=== PATIENT | female | born 1990 | race Caucasian/White ===

== ENCOUNTER 2022-12-13 04:28 | Emergency (ER) | payer SELFPAY ==
--- OUTSIDE RECORDS SUMMARY | 2022-12-13 04:32 | XMS REPORT | Continuity of Care Document ---
:[address] [facility] t Address [address] [place] [address] Care Team Providers Name Role Phone CAMLILA BABB Primary Care Physician Unavailable Alia Camarillo MD Attending Clinician ALIA CAMARILLO Attending Clinician Unavailable Unknown, Attending Attending Clinician Unavailable Doctor Unassigned, [place] Attending Clinician Unavailable CONCHA GREGORY Attending Clinician Unavailable Bri Concha REEDER Attending Clinician [phone] Nelsy Sofia Attending Clinician Unavailable JOSE JUAN SUTTON Attending Clinician Unavailable Jose Juan Rizo Attending Clinician Ashanti Huggins Attending Clinician Physician, No Primary or Family Admitting Clinician Unavaila ble Payers Payer Name Policy Type Policy Number Effective Date Expiration Date S ource Problems Condition Condition Condition Status Onset Resolution Last Treating Co mments Source Name Details Category Date Date Treatment Clinician Date Other Other Disease Active [facility] general general 4-07 [place] advice 00 Me dical for for Branch contracept contracept nereyda nereyda management management Breast Breast Disease Active Univers pain, pain, 4-07 ity of right right 00:00: [place] 00 Medical Branch 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 U nivers ou smear ou smear 2-23 it[place] of of cervix of [place] 00 Medical atypical atypical Branch squamous squamous cells cells cannot cannot exclude exclude high grade high grade squamous squamous intraepith intraepith elial elial lesion lesion (ASC-H) (ASC-H) Slow Slow Disease Active 2014-11 Univers transit transit 2-10 ity of constipati constipati [place] Family Family Disease Active 2014-11 Univers history of history of 2-10 it y of breast breast 00:00: [place] cancer in cancer in 00 Medi dilma first first Branch degree degree relative relative Papanicola Papanicola Disease Active Overview : Univers ou smear ou smear 4-29 [place] ity of of cervix of cervix 00:00: [place] of this [place] with low with low 00 note is Medic al grade grade different Branch squamous squamous from the intraepith intraepith original. 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 Allergies, Adverse Reactions, Alerts Allergy Allergy Status Severity Reaction(s) Onset Inactive Treating Comm ents Source Name Type Date Date Clinician No Known DA Active [facility] Allergie 05-08 Clear s 00:00: [place] 00 [facility] No Known DA Active U [facility] Allergie 05 Clear s 00:00: Bern[place] 00 [facility] No Known DA Active U [facility] Drug 2-17 [place] Allergie 00:00: d s 00 [facility] No Known DA Active U [facility] Drug 2-17 [place] Allergie 00:00: d s 00 [facility] NO KNOWN Drug Active Univers ALLERGIE Class ity of S [facility] Social History Social Habit Start Date Stop Date Quantity Comments Source History of Cigarette Smoker Universi ty of tobacco use [facility] Exposure to 2022-08-08 2022-08-18 Not sure [facility] SARS-CoV-2 00:00:00 20:30:00 [facility] [place] Tobacco use and 2022-08-18 2022-08-18 Smokeless tobacco Un iversity of exposure 00:00:00 00:00:00 non-user [facility] Alcohol intake 2022-08-18 2022-08-18 0 /d [facility] 00:00:00 00:00:00 [facility] Sex Ass[birth year] At [birth year] Universit y of 00:00:00 00:00:00 [facility] Smoking Status Start Date Stop Date Source Ex-smoker 2022-08-18 00:00:00 2022-08-18 00:00:00 [facility] Medications Ordered Filled Start Stop Current Ordering Indication Dosage Frequency Signature Comments Components Source Medication Medication Date Date Medication? Clinician (SIG) Name Name clindamycin 2021-11 Yes [id number] 300mg Take 1 Univers 300 mg 0-16 capsule by ity of capsule 00:00: mouth 4 [place] 00 ([facility]) Medical times [place] daily. Oxycodone 2021-11 Yes Take by Unive rs 10 mg Tab 0-15 mouth. ity of 20:35: [address] Oxycodone 2021-11 Yes Take by Unive rs 10 mg Tab 0-15 mouth. ity of 20:35: [address] Oxycodone 2021-11 Yes Take by Unive rs 10 mg Tab 0-15 mouth. ity of 20:35: [address] clindamycin 2021-11- No [id number] 300mg Take 1 Univers 300 mg 0-15 10-26 capsule by ity of capsule 00:00: 04:59 mouth 4 [place] 00 :00 ([facility]) Medical times [place] daily for 10 days. clindamycin 2021-11- No [id number] 300mg Take 1 Univers 300 mg 0-15 10-26 capsule by ity of capsule 00:00: 04:59 mouth 4 [place] 00 :00 ([facility]) Medical times [place] daily for 10 days. clindamycin 2021-11- No [id number] 300mg Take 1 Univers 300 mg 0-15 10-16 capsule by ity of capsule 00:00: 00:00 mouth 4 [place] 00 :00 (four) Medical times Branch daily for 10 days. valACYclovi 0 Yes Univer s r 1 gram 3-22 ity of tablet 00:00: [place] [facility] rizatriptan 2021-0 Yes Univer s 10 mg 3-22 ity of tablet 00:00: [place] [address] Medical Branch hydrOXYzine 2021-0 Yes Univer s 50 mg 3-22 ity of tablet 00:00: [place] [facility] clotrimazol 2021-0 Yes Univer s e-betametha 3-22 ity of sone cream 00:00: [place] [address] Medical Branch valACYclovi 0 Yes Univer s r 1 gram 3-22 ity of tablet 00:00: [place] [address] Medical Branch rizatriptan 0 Yes Univer s 10 mg 3-22 ity of tablet 00:00: [place] [address] Medical Branch hydrOXYzine 2021-0 Yes Univer s 50 mg 3-22 ity of tablet 00:00: [place] [address] Medical Branch clotrimazol 2021-0 Yes Univer s e-betametha 3-22 ity of sone cream 00:00: [place] [address] Medical Branch valACYclovi 2021-0 Yes Univer s r 1 gram 3-22 ity of tablet 00:00: [place] [address] Medical Branch rizatriptan 2021-0 Yes Univer s 10 mg 3-22 ity of tablet 00:00: [place] [address] Medical Branch hydrOXYzine 2021-0 Yes Univer s 50 mg 3-22 ity of tablet 00:00: [place] [address] Medical Branch clotrimazol 2021-0 Yes Univer s e-betametha 3-22 ity of sone cream 00:00: [place] [address] Medical Branch valACYclovi 2021-0 Yes Univer s r 1 gram 3-22 ity of tablet 00:00: [place] [facility] rizatriptan 2021-0 Yes Univer s 10 mg 3-22 ity of tablet 00:00: [place] [address] Medical Branch hydrOXYzine 2021-0 Yes Univer s 50 mg 3-22 ity of tablet 00:00: [place] [address] Medical Branch clotrimazol 2021-0 Yes Univer s e-betametha 3-22 ity of sone cream 00:00: [address] Branch valACYclovi Yes Univer s r 1 gram 3-22 ity of tablet 00:00: [address] Branch rizatriptan Yes Univer s 10 mg 3-22 ity of tablet 00:00: [address] Branch hydrOXYzine 0 Yes Univer s 50 mg 3-22 ity of tablet 00:00: [address] clotrimazol Yes Univer s e-betametha 3-22 ity of sone cream 00:00: [address] Immunizations Ordered Filled Immunization Date Status Comments Sour e Immunization Name Name HPV9 2015-10-14 Completed University of 00:00:00 [facility] 2015-10-14 Completed University of 00:00:00 [facility] HPV9 2015-10-14 Completed University of 00:00:00 [facility] 2015-10-14 Completed University of 00:00:00 [facility] 2015-10-14 Completed University of 00:00:00 [facility] TDAP 2013-01-27 Completed University of 00:00:00 [facility] TDAP 2013-01-27 Completed University of 00:00:00 [facility] TDAP 2013-01-27 Completed University of 00:00:00 [facility] TDAP 2013-01-27 Completed University of 00:00:00 [facility] TDAP 2013-01-27 Completed University of 00:00:00 [facility] Vital Signs Vital Name Observation Time Observation Value Comments Source Systolic blood 2022-08-19 01:34:00 129 mm[Hg] Univer sity of pressure [facility] Diastolic blood 2022-08-19 01:34:00 87 mm[Hg] Unive rsity of pressure [facility] Heart rate 2022-08-19 01:34:00 97 /min [facility] Body temperature 2022-08-19 01:34:00 37.17 [facility]illiana [facility] Res[facility] rate 2022-08-19 01:34:00 16 /min [facility] Body weight 2022-08-19 01:34:00 73.029 kg [facility] BMI 2022-08-19 01:34:00 25.22 kg/m2 [facility] Oxygen saturation in 2022-08-19 01:34:00 98 /min [facility] Arterial blood by [facility] Pulse oximetry Branch Systolic blood 2022-04-10 18:31:00 136 mm[Hg] Univer sity of pressure [facility] Diastolic blood 2022-04-10 18:31:00 77 mm[Hg] Unive rsity of [facility] Heart rate 2022-04-10 18:31:00 82 /min [facility] Body temperature 2022-04-10 18:31:00 36.22 Lilliana [facility] Respiratory rate 2022-04-10 18:31:00 18 /min [facility] Body height 2022-04-10 18:31:00 170.2 cm [facility] Body weight 2022-04-10 18:31:00 74.418 kg [facility] BMI 2022-04-10 18:31:00 25.70 kg/m2 [facility] Procedures Procedure Date / Time Performed Performing Clinician Sour e PATIENT AGREEMENTS AND 2022-08-18 05:01:00 Doctor Unassigned, No [facility] CONTRACTS Name [facility] POCT URINALYSIS W/O 2022-04-10 18:32:00 Concha Gregory versity of [facility] [place] [facility] GRAVITY [facility] Encounters Start End Encounter Admission Attending Care Care Encounter Source Date/Time Date/Time Type Type Clinicians Facility Department ID 2022-08-19 2022-08-19 Telephone Marquise [facility] [id number] Univers 00:00:00 00:00:00 [facility] [id number] it y [facility] 4.2.7.2.686 Lan as LÓPEZ?BLEA [id number] [address] MEDICAL OFFICE BUILDING 2022-08-18 2022-08-18 Outpatient R MARQUISE [facility] [id number] Univers 20:20:00 20:59:37 ALIA shipman [facility] 2022-08-18 2022-08-18 Urgent Alia Camarillo [facility] [id number] Univers 20:20:00 20:40:00 Care Unknown, Attending HEALTH [id number] ity [facility] 4.2.7.2.686 Lan as LÓPEZ?BLEA [id number] [address] MEDICAL OFFICE BUILDING 2022-08-18 2022-08-18 Orders Doctor DEBRA [id number] Univers 00:00:00 00:00:00 Only Unassigned, JONEL [id number] ity of [place] [facility] 4.2.7.2.686 Lan as [phone] [address] 2022-04-17 2022-04-17 Outpatient R [facility] [id number] Univers 14:30:00 14:30:00 ity [facility] 2022-04-17 2022-04-17 Outpatient R [facility] [id number] Univers 13:00:00 13:00:00 ity [facility] 2022-04-12 2022-04-12 Outpatient R [facility] [id number] Univers 13:00:00 13:00:00 ity [facility] 2022-04-10 2022-04-10 [facility] [id number] Univers 13:15:00 13:59:44 CONCHA benites [facility] 2022-04-10 2022-04-10 Office [facility] [id number] Univers 13:15:00 13:59:44 Visit Concha Mckeon MANAGER ASSET [id number] ity [facility] 4.2.7.2.686 Lan as MATERNAL [phone] [facility] ical & CHILD [address] [place] [address] 2022-04-10 2022-04-10 Outpatient R AKINSIPE, [facility] [id number] Univers 13:15:00 13:15:00 CONCHA shipman o [facility] 2022-02-08 2022-02-08 Office [facility] [id number] Univers 09:30:00 11:18:08 Visit Concha Mckeon MANAGER ASSET [id number] [facility] 4.2.7.2.686 Lan as MATERNAL [id number] Med ical & CHILD [address] [facility] 2022-02-08 2022-02-08 Outpatient Cary GREGORY [facility] [id number] Univers 09:30:00 11:18:08 CONCHA jean baptiste [facility] 2022-02-08 2022-02-08 Outpatient Cary GREGORY [facility] [id number] Univers 09:30:00 09:30:00 CONCHA jean baptiste [facility] 2021-05-09 2021-05-09 Outpatient LORENZO SofiaCL LABO [id number] [facility] 01:17:00 01:17:00 Nelsy 95 [facility] 2021-05-08 2021-05-08 Emergency EM LORENZO SofiaMN ALYSSA [id number] [facility] 16:40:00 18:50:00 Nelsy 20 [facility] 2020-12-13 2020-12-13 Outpatient Cary SUTTON [facility] [id number] Univers 14:00:00 14:00:00 JOSE JUAN benites [facility] 2020-10-13 2020-10-13 Outpatient Cary [facility] [id number] Univers 09:15:00 09:15:00 JOSE JUAN benites [facility] 2020-10-04 2020-10-04 Outpatient Cary [facility] [id number] Univers 13:15:00 13:15:00 JOSÉESTEFANÍASANTOMelinda benites [facility] 2019-06-16 2019-06-16 [place] [facility] [id number] 00:00:00 00:00:00 Jose Juan Townsend MANAGER ASSET [id number] [facility] 4.2.7.2.686 MATERNAL [id number] & CHILD 107 [facility] 2019-06-08 2019-06-09 [facility] [id number] 21:19:19 00:25:00 Ashanti Carrion [place] [id number] [place] 4.2.7.2.686 [place] [id number] Results Test Description Test Time Test Comments Results Result Comments Source POCT URINALYSIS W/O SPECIFIC GRAVITY 2022-04-10 18:32:00 Test Item Value Reference Range Interpretation Comme nts POCT PH U (test code = 3254) 6 mg/dl 5-8 POCT U LEUK EST (test code = 3263) Neg Negative - Negative POCT U NIT (test code = 3262) Neg Negative - Negative POCT U PROT (test code = 3259) Trace Negative - Negative POCT U GLU (test code = 3256) Neg Negative - Negative POCT U KETONE (test code = 3258) None Negative - Negative POCT U BLD (test code = 3257) Trace Negative - Negative [facility]O SPECIFIC [id number] 18:32:00 Test Item Value Reference Range Interpretation Comments POCT PH U (test code = 3254) 6 mg/dl 5-8 POCT U LEUK EST (test code = Neg Negative - Negative 3263) POCT U NIT (test code = 3262) Neg Negative - Negative POCT U PROT (test code = 3259) Trace Negative - Negative POCT U GLU (test code = 3256) Neg Negative - Negative POCT U KETONE (test code = 3258) None Negative - Negative POCT U BLD (test code = 3257) Trace Negative - Negative [facility]ics[facility]PRE[facility] METABOLIC [id number] 18:33:00 Test Item Value Reference Range Interpretation Comments SODIUM (test code = NA) 141 mmol/l 134.0-147.0 N POTASSIUM (test code = K) 3.9 mmol/L 3.6-5.2 N CHLORIDE (test code = CL) 102 mmol/l 98.0-107.0 N CARBON DIOXIDE (test code = CO2) 30.6 mmol/l 21.0-33.0 N ANION GAP (test code = GAP) 12.3 0-20 N GLUCOSE (test code = GLU) 94 mg/dl 70.0-110.0 N BLOOD UREA NITROGEN (test code = 8 mg/dl 7.0-18.0 N BUN) CREATININE (test code = CREAT) 0.76 mg/dL 0.60-1.30 N GFR NON BLACK (test code = 95 mL/min 110-120 L GFRNONBLACK) GFR BLACK (test code = GFRBLACK) 115 mL/min 133-145 L TOTAL PROTEIN (test code = PROT) 7.8 GM/DL 6.0-8.1 N ALBUMIN (test code = ALB) 4.3 gm/dL 3.2-4.7 N CALCIUM (test code = CA) 8.4 mg/dl 8.0-10.5 N BILIRUBIN TOTAL (test code = 0.4 mg/dl 0.0-1.0 N BILT) SGOT/AST (test code = AST) 16 Units/L 15-37 N SGPT/ALT (test code = ALT) 39 Units/L 12.0-78.0 N ALKALINE PHOSPHATASE TOTAL (test 78 Units/L 50.0-136.0 N code = ALKP) COMPREHENSIVE METABOLIC [id number] 18:27:00 Test Item Value Reference Range Interpretation Comments SODIUM (test code = NA) 141 mmol/l 134.0-147.0 N POTASSIUM (test code = K) 3.9 mmol/L 3.6-5.2 N CHLORIDE (test code = CL) 102 mmol/l 98.0-107.0 N CARBON DIOXIDE (test code = CO2) 30.6 mmol/l 21.0-33.0 N ANION GAP (test code = GAP) 12.3 0-20 N GLUCOSE (test code = GLU) mg/dl 70.0-110.0 BLOOD UREA NITROGEN (test code = mg/dl 7.0-18.0 BUN) CREATININE (test code = CREAT) mg/dL 0.60-1.30 GFR NON BLACK (test code = mL/min 110-120 GFRNONBLACK) GFR BLACK (test code = GFRBLACK) mL/min 133-145 TOTAL PROTEIN (test code = PROT) gm/dL 6.4-8.2 ALBUMIN (test code = ALB) gm/dl 3.2-4.7 CALCIUM (test code = CA) mg/dl 8.0-10.5 BILIRUBIN TOTAL (test code = mg/dl 0.0-1.0 BILT) SGOT/AST (test code = AST) Units/L 15-37 SGPT/ALT (test code = ALT) Units/L 12.0-78.0 ALKALINE PHOSPHATASE TOTAL (test Units/L 50.0-136.0 code = ALKP) CBC W/AUTO [id number] 18:21:00 Test Item Value Reference Range Interpretation Comments WHITE BLOOD CELL (test code = 9.0 K/mm3 4.5-11.0 N WBC) RED BLOOD CELL (test code = 4.57 M/mm3 3.80-5.20 N RBC) HEMOGLOBIN (test code = HGB) 13.8 gm/dL 12.0-16.0 N HEMATOCRIT (test code = HCT) 43.2 % 36.0-48.0 N MEAN CELL VOLUME (test code = 94.5 UM3 82.0-99.0 N MCV) MEAN CELL HGB (test code = MCH) 30.2 UUG 25.5-32.5 N MEAN CELL HGB CONCETRATION 31.9 gm/dL 29.0-35.5 N (test code = MCHC) RED CELL DISTRIBUTION WIDTH 12.8 % 11.5-15.0 N (test code = RDW) RED CELL DISTRIBUTION WIDTH SD 44.2 fL 34.8-50.2 N (test code = RDW-SD) PLATELET COUNT (test code = 232 K/mm3 150-400 N PLT) MEAN PLATELET VOLUME (test code 11.9 fl 7.4-10.4 H = MPV) NEUTROPHIL % (test code = NT%) 68.4 % 49.0-76.0 N IMMATURE GRANULOCYTE % (test 0.2 % 0.0-0.4 N code = IG%) LYMPHOCYTE % (test code = LY%) 16.4 % 23.0-38.0 L MONOCYTE % (test code = MO%) 11.9 % 1.0-10.0 H EOSINOPHIL % (test code = EO%) 2.7 % 1.0-5.0 N BASOPHIL % (test code = BA%) 0.4 % 0.0-1.0 N NUCLEATED RBC % (test code = 0.0 % 0.0-0.1 N NRBC%) NEUTROPHIL # (test code = NT#) 6.1 K/mm3 2.4-6.3 N IMMATURE GRANULOCYTE # (test 0.02 x10 3/uL 0.00-0.07 N code = IG#) LYMPHOCYTE # (test code = LY#) 1.5 K/mm3 1.2-4.0 N MONOCYTE # (test code = MO#) 1.1 K/mm3 0.0-0.6 H EOSINOPHIL # (test code = EO#) 0.2 K/MM3 0.0-0.7 N BASOPHIL # (test code = BA#) 0.0 K/mm3 0.0-0.2 N NUCLEATED RBC # (test code = 0.00 X10 3uL 0.00-0.01 N NRBC#) - CT ABD PELVIS W/O [id number] 18:14:00 [facility] [place] : 1990 Sex: F FAX: Debra Cheatham [phone] [place]: St: REG FAX: Nelsy Sofia MD [phone] Name: [facility] [place]OB: 1990 Age/S: 31/F [address] [facility] Unit: [id number] Loc: [address] Phys: Debra Cheatham [id number] Acct: [id number] Dis Date: Status: REG ER PHONE #: [phone] Exam Date: 05/08/20211806 FAX #: [phone] Reason: right flank pain EXAMS: CPT CODE: [id number] CTABD PELVIS W/O CONT 34339 Dictation location: H37. CT ABDOMEN AND PELVIS WITHOUT IV CONTRAST HISTORY: right flank pain COMPARISON: None. TECHNIQUE: Axial CT images of the abdomen and pelvis were obtained with coronal and/or sagittal reformatted views. Automated exposure control, iterative reconstruction technique, and/or adjustment of mA and/or kV according to patient's size was utilized for radiation dose reduction. IV CONTRAST: None. PO CONTRAST: None. Lack of IV contrast limits evaluation of the parenchyma and vasculature. FINDINGS: The visualized lung bases are clear. The heart size is normal. The gallbladder is partially distended without surrounding inflammatory changes. The unenhanced liver, spleen, pancreas and adrenal glands are unremarkable. Both kidneys are similar in size, shape without evidence of hydronephrosis or nephrolithiasis. No ureteral stone. Urinary bladder is contracted.Likely several follicles in the pelvis. The uterus and ovaries are grossly unremarkable. No free air, free fluid or evidence of a bowel obstruction. The stomach is collapsed. Normal appendix. No definite bowel wall thickening. Prominent amount stool seen throughout the colon. Aorta is normal in caliber. No abdominal or pelvic adenopathy. The bones are unremarkable. IMPRESSION: No evidence of nephrolithiasis or obstructive uropathy. PAGE 1 Signed Report (CONTINUED) FAX: Debra Cheatham [phone] [place]: St: REG FAX: Nelsy Sofia MD [phone] Name: VIVI ADLER [facility] : 1990 Age/S: 31/F [address] [facility] Unit: [id number] Loc: [address] Phys: Debra Cheatham [id number] Acct: [id number] Dis Date: Status: REG ER PHONE #: [phone] Exam Date: 05/08/2021 180 FAX #: [phone] Reason: right flank pain EXAMS: CPT CODE: [id number] CT ABD PELVIS W/O CONT 17543 (Continued) Normal appendix. Possible constipation. at 1814 Reported and signed by: Mamta Lindsey M.D. CC: Debra ADEN; Nelsy Sofia MD Technologist: RIYA BETH Trnscrd Dt/Tm: 05/08/2021 (1813) [email or web address] OrigPrint D/T: S: 05/08/2021 (1816 PAGE 2 Signed ReportDRUGS OF ABUSE SCREEN [id number] 17:19:00 Test Item Value Reference Range Interpretation Comments URN COCAINE (test code NEGATIVE NEGATIVE Cocai ne cut-off = COCAURN) concentration: 300 ng/mL URN CANNABINOIDS (test NEGATIVE NEGATIVE Canna binoids cut-off code = CANNABURN) concentrat ion: 50 ng/mL URN AMPHETAMINE (test NEGATIVE NEGATIVE Amphet amine cut-off code = AMPHETURN) concentrat ion: 1000 ng/mL URN BARBITURATE (test NEGATIVE NEGATIVE Barbit urate cut-off code = BARBITURN) concentrat ion: 200 ng/mL URN BENZODIAZEPINE NEGATIVE NEGATIVE Benzodiaz epine cut-off (test code = BENZOURN) ozzie ntration: 200 ng/mL URN OPIATES (test code NEGATIVE NEGATIVE Opiat es cut-off = OPIATURN) concentration: 2000 ng/mL URN PHENCYCLIDINE (PCP) NEGATIVE NEGATIVE Phen cyclidine(PCP) (test code = PHENCURN) cut-o ff concentration: 25 ng/ml URN METHADONE (test NEGATIVE NEGATIVE Methadon e cut-off code = METHAURN) concentrati on: 300 ng/mL URINALYSIS [id number] 17:13:00 Test Item Value Reference Range Interpretation Comments UA COLOR (test code = DARK YELLOW COLU) UA APPEARANCE (test code HAZY = APPU) UA GLUCOSE DIPSTICK INTERFERING SUBST. NORMAL (test code = DGLUU) mg/dl UA BILIRUBIN DIPSTICK INTERFERING SUBST. NEGATIVE (test code = BILU) mg/dL UA KETONE DIPSTICK (test INTERFERING SUBST. NEGATIVE code = KETU) mg/dl UA SPECIFIC GRAVITY 1.015 1.000-1.030 (test code = SGU) UA BLOOD DIPSTICK (test INTERFERING SUBST. NEGATIVE code = SOHAM) Niko/micL UA PH DIPSTICK (test 6.5 5.0-9.0 code = RACHEL) UA PROTEIN DIPSTICK INTER. SUB. mg/dl NEGATIVE (test code = PROU) UA UROBILINIOGEN INTERFERING SUBST. NORMAL DIPSTICK (test code = mg/dl URO) UA NITRITE DIPSTICK INTER.SUB. NEGATIVE (test code = RAI) UA LEUKOCYTE ESTERASE INTERFERING SUBST. NEGATIVE DIPSTICK (test code = Hector/micL LEUU) UA WBC (test code = 30-40 WBC/HPF NONE A WBCU) UA RBC (test code = 50-100 RBC/HPF 0-3 A RBCU) UA EPITHELIAL CELLS 5-10 EPI/HPF 0-3 A (test code = EPIU) UA BACTERIA (test code = MANY NONE A BACU) UR HCG [id number] 17:13:00 Test Item Value Reference Range Interpretation Comments UR HCG QUAL (test code = HCGQLU) NEGATIVE NEGATIVE UR HCG [id number] 17:12:00 Test Item Value Reference Range Interpretation Comments UR HCG QUAL (test code = HCGQLU) NEGATIVE NEGATIVE URINALYSIS [id number] 17:12:00 Test Item Value Reference Range Interpretation Comments UA COLOR (test code = DARK YELLOW COLU) UA APPEARANCE (test code HAZY = APPU) UA GLUCOSE DIPSTICK INTERFERING SUBST. NORMAL (test code = DGLUU) mg/dl UA BILIRUBIN DIPSTICK INTERFERING SUBST. NEGATIVE (test code = BILU) mg/dL UA KETONE DIPSTICK (test INTERFERING SUBST. NEGATIVE code = KETU) mg/dl UA SPECIFIC GRAVITY 1.015 1.000-1.030 (test code = SGU) UA BLOOD DIPSTICK (test INTERFERING SUBST. NEGATIVE code = SOHAM) Niko/micL UA PH DIPSTICK (test 6.5 5.0-9.0 code = RACHEL) UA PROTEIN DIPSTICK INTER. SUB. mg/dl NEGATIVE (test code = PROU) UA UROBILINIOGEN INTERFERING SUBST. NORMAL DIPSTICK (test code = mg/dl URO) UA NITRITE DIPSTICK INTER.SUB. NEGATIVE (test code = RAI) UA LEUKOCYTE ESTERASE INTERFERING SUBST. NEGATIVE DIPSTICK (test code = Hector/micL LEUU) UA WBC (test code = WBC/HPF NONE WBCU) UA RBC (test code = RBC/HPF 0-3 RBCU) UA EPITHELIAL CELLS EPI/HPF 0-3 (test code = EPIU) UA BACTERIA (test code = NONE BACU) URINALYSIS [id number] 17:11:00 Test Item Value Reference Range Interpretation Comments UA COLOR (test code = COLU) UA APPEARANCE (test code = APPU) UA GLUCOSE DIPSTICK (test code = mg/dl NORMAL DGLUU) UA BILIRUBIN DIPSTICK (test code = mg/dL NEGATIVE BILU) UA KETONE DIPSTICK (test code = mg/dl NEGATIVE KETU) UA SPECIFIC GRAVITY (test code = 1.000-1.030 SGU) UA BLOOD DIPSTICK (test code = SOHAM) Niko/micL NEGATIVE UA PH DIPSTICK (test code = RACHEL) 5.0-9.0 UA PROTEIN DIPSTICK (test code = mg/dl NEGATIVE PROU) UA UROBILINIOGEN DIPSTICK (test mg/dl NORMAL code = URO) UA NITRITE DIPSTICK (test code = NEGATIVE RAI) UA LEUKOCYTE ESTERASE DIPSTICK Hector/micL NEGATIVE (test code = LEUU) UA WBC (test code = WBCU) WBC/HPF NONE UA RBC (test code = RBCU) RBC/HPF 0-3 UA EPITHELIAL CELLS (test code = EPI/HPF 0-3 EPIU) UA BACTERIA (test code = BACU) NONE UR HCG [id number] 17:11:00 Test Item Value Reference Range Interpretation Comments UR HCG QUAL (test code = HCGQLU) NEGATIVE NEGATIVE
--- NOTE | 2022-12-13 06:06 | EDPHYS ---
Physician Documentation [facility] Name: Briseyda Wong Age: 32 yrs Sex: Female : 1990 Arrival Date: 12/13/2022 Time: 04:33 Bed 18 Private MD: ED Physician Ervin Hutchinson HPI: 12/13 06:01 This 32 yrs old Female presents to ER via Ambulatory with complaints of Fall natalia Injury, Arm Injury, Arm Pain. 06:01 Details of fall: The patient fell from a height, down approximately 5 stairs. Onset: natalia The symptoms/episode began/occurred last night. Associated injuries: The patient sustained neck injury, anterior aspect of right shoulder, right antecubital area, right hand, posterior aspect of right shoulder and right elbow. Severity of symptoms: At their worst the symptoms were moderate, in the emergency department the symptoms are unchanged. The patient has not experienced similar symptoms in the past. 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 - Social history:: Smoking status: Reported history of juuling and/or vaping. - Family history:: not pertinent. ROS: 06:01 Constitutional: Negative for fever, chills, and weight loss, Eyes: Negative for injury, natalia pain, redness, and discharge, ENT: Negative for injury, pain, and discharge, Cardiovascular: Negative for chest pain, palpitations, and edema, Respiratory: Negative for shortness of breath, cough, wheezing, and pleuritic chest pain, Abdomen/GI: Negative for abdominal pain, nausea, vomiting, diarrhea, and constipation, Back: Negative for injury and pain, : Negative for injury, bleeding, discharge, and swelling, Skin: Negative for injury, rash, and discoloration, Neuro: Negative for headache, weakness, numbness, tingling, and seizure, Psych: Negative for depression, anxiety, suicide ideation, homicidal ideation, and hallucinations, Allergy/Immunology: Negative for hives, rash, and allergies, Endocrine: Negative for neck swelling, polydipsia, polyuria, polyphagia, and marked weight changes, Hematologic/Lymphatic: Negative for swollen nodes, abnormal bleeding, and unusual bruising. 06:01 Neck: Positive for pain with movement, pain at rest. 06:01 : Positive for 06:01 MS/extremity: Positive for decreased range of motion, pain, of the anterior aspect of right shoulder, right antecubital area, right hand, posterior aspect of right shoulder and right elbow. Exam: 06:01 Constitutional: This is a well developed, well nourished patient who is awake, alert, natalia and in no acute distress. Head/Face: Normocephalic, atraumatic. Eyes: Pupils equal round and reactive to light, extra-ocular motions intact. Lids and lashes normal. Conjunctiva and sclera are non-icteric and not injected. Cornea within normal limits. Periorbital areas with no swelling, redness, or edema. ENT: Nares patent. No nasal discharge, no septal abnormalities noted. Tympanic membranes are normal and external auditory canals are clear. Oropharynx with no redness, swelling, or masses, exudates, or evidence of obstruction, uvula midline. Mucous membranes moist. Chest/axilla: Normal chest wall appearance and motion. Nontender with no deformity. No lesions are appreciated. Cardiovascular: Regular rate and rhythm with a normal S1 and S2. No gallops, murmurs, or rubs. Normal PMI, no JVD. No pulse deficits. Respiratory: Lungs have equal breath sounds bilaterally, clear to auscultation and percussion. No rales, rhonchi or wheezes noted. No increased work of breathing, no retractions or nasal flaring. Abdomen/GI: Soft, non-tender, with normal bowel sounds. No distension or tympany. No guarding or rebound. No evidence of tenderness throughout. Back: No spinal tenderness. No costovertebral tenderness. Full range of motion. Skin: Warm, dry with normal turgor. Normal color with no rashes, no lesions, and no evidence of cellulitis. Neuro: Awake and alert, GCS 15, oriented to person, place, time, and situation. Cranial nerves II-XII grossly intact. Motor strength 5/5 in all extremities. Sensory grossly intact. Cerebellar exam normal. Normal gait. Psych: Awake, alert, with orientation to person, place and time. Behavior, mood, and affect are within normal limits. 06:01 Neck: External neck: is normal, no acute changes, ROM/movement: limited range of motion, that is mild, with flexion, with extension, Meningeal signs: are not present, nuchal rigidity, is not appreciated, Lymph nodes: no appreciated lymphadenopathy. Vital Signs: 04:35 Pulse 89; Resp 18; Temp 98.7; Pulse Ox 100% ; Weight 72.57 kg; Height 5 ft. 7 in. tw5 (170.18 cm); Pain 7/10; 04:35 BP 126 / 84; tw5 04:35 Body Mass Index 25.06 (72.57 kg, 170.18 cm) tw5 MDM: 05:40 Patient medically screened. [facility] 06:03 Data reviewed: vital signs, nurses notes, lab test result(s), urinalysis, radiologic natalia studies, CT scan, plain films. Consideration of Admission/Observation Escalation of care including admission/observation considered. Test considered but Not performed: Labs: no labs necessary. Care significantly affected by the following chronic conditions: none. 12/13 06:13 Order name: Urine Dipstick-Ancillary; Complete Time: 07:07 EDMS 12/13 06:17 Order name: Urine --Ancillary (enter results); Complete Time: 07:07 ds4 12/13 04:41 Order name: Shoulder Right (2 View) XRAY tw5 12/13 04:41 Order name: Elbow Right 3 View XRAY tw5 12/13 04:57 Order name: XRAY Hand RIGHT 2 View aa9 12/13 06:00 Order name: CT C Spine [facility] 12/13 04:41 Order name: Arm-Sling; Complete Time: 05:09 tw5 12/13 06:00 Order name: Urine Dipstick-Ancillary (obtain specimen); Complete Time: 06:13 natalia 12/13 06:00 Order name: Urine Test (obtain specimen); Complete Time: 06:13 natalia Administered Medications: 06:08 Drug: Benadryl (diphenhydrAMINE) 50 mg Route: PO; aa9 06:56 Follow up: Response: No adverse reaction aa9 Disposition Summary: 12/13/22 06:05 Discharge Ordered Location: Home natalia Problem: new natalia Symptoms: have improved natalia Condition: Stable natalia Diagnosis - Fall (on) (from) other stairs and steps natalia - Dermatitis, unspecified natalia - Strain of muscle, fascia and tendon at neck level, initial encounter natalia Followup: natalia - With: Private Physician - When: 2 - 3 days - Reason: Recheck today's complaints, Continuance of care, Re-evaluation by your physician Followup: natalia - With: Cirilo Vail MD - When: 2 - 3 days - Reason: Recheck today's complaints, Continuance of care, Re-evaluation by your physician Discharge Instructions: - Discharge Summary Sheet natalia - Fall Prevention in the Home, Adult natalia - Muscle Strain natalia - Rash, Adult natalia - Shoulder Pain natalia - Elbow Contusion natalia - Rash, Adult, [id number] natalia - Muscle Strain, [id number]-[id number] natalia - Contusion, [id number]-[id number] natalia - Shoulder Sprain natalia Forms: - Medication Reconciliation Form natalia - Thank You Letter natalia - Antibiotic Education natalia - Prescription Opioid Use natalia Prescriptions: - Benadryl 25 mg Oral Capsule - take 1 capsule by ORAL route every 6 hours As needed; 30 tablet; Refills: 0, [facility] Product Selection Permitted - Ibuprofen 600 mg Oral Tablet - take 1 tablet by ORAL route every 6 hours As needed take with food; 30 tablet; natalia Refills: 0, Product Selection Permitted - Medrol (Tim) 4 mg Oral Tablets, Dose Pack - take 1 tablet by ORAL route as directed - follow package instructions; 1 natalia packet; Refills: 0, Product Selection Permitted - Cyclobenzaprine 5 mg Oral Tablet - take 1 tablet by ORAL route 3 times per day As needed; 15 tablet; Refills: 0, [facility] Product Selection Permitted Signatures: Dispatcher [employer] Ervin Freitas MD MD cha Wood, Tiffany tw5 Carola Reynolds, RN RN aa9
--- NOTE | 2022-12-13 06:06 | ER ---
Nurse's Notes [facility] Name: Briseyda Wong Age: 32 yrs Sex: Female : 1990 Arrival Date: 12/13/2022 Time: 04:33 Bed 18 Private MD: Diagnosis: Fall (on) (from) other stairs and steps;Dermatitis, unspecified;Strain of muscle, fascia and tendon at neck level, initial encounter Presentation: 12/13 04:35 Chief complaint: Patient states: "yesterday I was walking out of the camper and I tw5 slipped down the steps. I threw my arm back and I hit something. I feel like my neck is also hurting.". Coronavirus screen: Vaccine status: Patient reports being unvaccinated. Ebola Screen: Patient negative for fever greater than or equal to 101.5 degrees Fahrenheit, and additional compatible Ebola Virus Disease symptoms Patient denies exposure to infectious person. Patient denies travel to an Ebola-affected area in the 21 days before illness onset. Initial Sepsis Screen: Does the patient meet any 2 criteria? No. Patient's initial sepsis screen is negative. Does the patient have a suspected source of infection? No. Patient's initial sepsis screen is negative. Risk Assessment: Do you want to hurt yourself or someone else? Patient reports no desire to harm self or others. Onset of symptoms was December 12, 2022 at 20:00. 04:35 Acuity: CRYSTAL 4 tw5 04:35 Method Of Arrival: Ambulatory tw5 Triage Assessment: 04:38 General: Appears uncomfortable, Behavior is calm, cooperative, appropriate for age. tw5 Pain: Pain currently is 7 out of 10 on a pain scale. 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 - Social history:: Smoking status: Reported history of juuling and/or vaping. - Family history:: not pertinent. Screenin:54 [facility] ED Fall Risk Assessment (Adult) History of falling in the last 3 months, aa9 including since admission Yes- single mechanical fall (1 pt) Confusion or Disorientation No (0 pts) Intoxicated or Sedated No (0 pts) Impaired Gait No (0 pts) Mobility Assist Device Used No (0 pt) Altered Elimination No (0 pt) Score/Fall Risk Level 0 - 2 = Low Risk Oriented to surroundings, Maintained a safe environment. Abuse screen: Denies threats or abuse. Denies injuries from another. Nutritional screening: No deficits noted. Tuberculosis screening: No symptoms or risk factors identified. Assessment: 04:40 General: Reports "I took an hydrocodone and an 800 mg Ibuprofen around 1 AM this tw5 morning. ". 05:09 Reassessment: Patient appears in no apparent distress at this time. Patient is alert, aa9 oriented x 3, equal unlabored respirations, skin warm/dry/pink. Pain: Complains of pain in R arm, R shoulder Pain currently is 7 out of 10 on a pain scale. Aggravated by increased activity. Cardiovascular: Capillary refill < 3 seconds Patient's skin is warm and dry. Respiratory: Airway is patent Respiratory effort is even, unlabored. GI: No deficits noted. Musculoskeletal: Reports Pain is 7 out of 10 on a pain scale. 06:13 Reassessment: Patient appears in no apparent distress at this time. discharge pending aa9 CT scan. 06:54 Reassessment: Patient appears in no apparent distress at this time. Patient and/or aa9 family updated on plan of care and expected duration. Pain level reassessed. Patient is alert, oriented x 3, equal unlabored respirations, skin warm/dry/pink. Vital Signs: 04:35 Pulse 89; Resp 18; Temp 98.7; Pulse Ox 100% ; Weight 72.57 kg; Height 5 ft. 7 in. tw5 (170.18 cm); Pain 7/10; 04:35 BP 126 / 84; tw5 04:35 Body Mass Index 25.06 (72.57 kg, 170.18 cm) tw5 ED Course: 04:33 Patient arrived in ED. jj6 04:37 Triage completed. tw5 04:42 Carola Reynolds, RN is Primary Nurse. aa9 05:15 Shoulder Right (2 View) XRAY In Process Unspecified. EDMS 05:16 Elbow Right 3 View XRAY In Process Unspecified. EDMS 05:16 XRAY Hand RIGHT 2 View In Process Unspecified. EDMS 05:40 Ervin Hutchinson MD is Attending Physician. [facility] 06:04 Cirilo Vail MD is Referral Physician. [facility] 06:25 CT C Spine In Process Unspecified. EDMS 06:55 Patient has correct armband on for positive identification. Bed in low position. Call aa9 light in reach. 06:55 Arm band placed on Patient notified of wait time. aa9 06:55 No provider procedures requiring assistance completed. aa9 07:08 Patient did not have IV access during this emergency room visit. aa9 Administered Medications: 06:08 Drug: Benadryl (diphenhydrAMINE) 50 mg Route: PO; aa9 06:56 Follow up: Response: No adverse reaction aa9 Medication: 06:55 VIS not applicable for this client. aa9 Outcome: 06:05 Discharge ordered by . [facility] 07:08 Discharged to home ambulatory. aa9 07:08 Condition: stable 07:08 Discharge instructions given to patient, Instructed on discharge instructions, follow up and referral plans. medication usage, Demonstrated understanding of instructions, follow-up care, medications, Prescriptions given X 4. 07:08 Patient left the ED. aa9 Signatures: Dispatcher [employer] EDErvin Yanes MD MD cha Wood, Tiffany tw5 Rochelle Spain jj6 Carola Reynolds, RN RN aa9
[2022-12-13] MEDS ORDERED: DIPHENHYDRAMINE 25 MG TAB/CAP ONE (06:09)
[2022-12-13 06:13] LABS: Urine Blood 2+ (Negative); Urine Glucose Negative (Negative); Urine Protein Negative (Negative)
[2022-12-13 07:30] VITALS: BP 126/84; TEMP 98.7; O2SAT 100
--- NOTE | 2022-12-13 16:58 | RAD REPORT ---
EXAM DESCRIPTION: RAD - Shoulder Right 2 View - 12/13/2022 5:14 am CLINICAL HISTORY: The patient is 32 years old and is Female; PAIN Shoulder Right 2 View TECHNIQUE: Two or more views of the right shoulder. COMPARISON: No relevant prior studies available. FINDINGS: BONES/JOINTS: Unremarkable. No acute fracture. No dislocation. SOFT TISSUES: Unremarkable. IMPRESSION: Normal right shoulder radiographs. Electronically signed by: Alma Jackson MD 12/13/2022 5:21 AM BOTTLE PACKER Due to temporary technical issues with the PACS/Fluency reporting system, reports are being signed by the in house radiologists without review as a courtesy to insure prompt reporting. The interpreting radiologist is fully responsible for the content of the report.
--- NOTE | 2022-12-13 17:02 | RAD REPORT ---
EXAM DESCRIPTION: RAD - Elbow Right 3 View - 12/13/2022 5:14 am CLINICAL HISTORY: The patient is 32 years old and is Female; PAIN Elbow Right 3 View TECHNIQUE: Frontal, lateral and oblique views of the right elbow. COMPARISON: No relevant prior studies available. FINDINGS: BONES/JOINTS: Unremarkable. No acute fracture. No dislocation. SOFT TISSUES: Unremarkable. IMPRESSION: Normal right elbow radiographs. Electronically signed by: Alma Jackson MD 12/13/2022 5:22 AM HYDROELECTRIC PLANT TECHNICIAN Due to temporary technical issues with the PACS/Fluency reporting system, reports are being signed by the in house radiologists without review as a courtesy to insure prompt reporting. The interpreting radiologist is fully responsible for the content of the report.
--- NOTE | 2022-12-13 17:03 | RAD REPORT ---
EXAM DESCRIPTION: RAD - Hand Right 2 View - 12/13/2022 5:14 am CLINICAL HISTORY: The patient is 32 years old and is Female; PAIN TECHNIQUE: Frontal and lateral views of the right hand. COMPARISON: No relevant prior studies available. FINDINGS: BONES/JOINTS: Unremarkable. No acute fracture. No dislocation. SOFT TISSUES: Unremarkable. No radiopaque foreign body. IMPRESSION: Normal right hand radiographs. Electronically signed by: Alma Jackson MD 12/13/2022 5:23 AM ON SITE NURSE Due to temporary technical issues with the PACS/Fluency reporting system, reports are being signed by the in house radiologists without review as a courtesy to insure prompt reporting. The interpreting radiologist is fully responsible for the content of the report.
--- NOTE | 2022-12-13 17:23 | RAD REPORT ---
EXAM DESCRIPTION: CT - C Spine Wo Con - 12/13/2022 7:09 am TECHNIQUE: Computerized tomography of the cervical spine was performed from the skull base to T1 wit hout contrast material. This exam was performed according to our department optimization program whic h includes automated exposure control, adjustment of the mA and/or kV according to patient size, and/ or use of iterative reconstruction technique. CLINICAL HISTORY: Pain COMPARISON: None. FINDINGS: There is evidence of periodontal disease. The vertebral body heights and alignment are preserved. There are mild degenerative disc changes at C 6-7, with disc space narrowing and osteophyte formation; there is likely a posterior disc herniation at this level. There are mild osteoarthritic changes of the atlantodental articulation. No acute frac ture or subluxation is identified. IMPRESSION: No acute fracture or subluxation. . Degenerative disc changes at C6-7 with probable posterior disc herniation; this would be better asses sed with MRI. Electronically signed by: Lori Staton MD 12/13/2022 6:41 AM LEGAL SUPPORT SPECIALIST Due to temporary technical issues with the PACS/Fluency reporting system, reports are being signed by the in house radiologists without review as a courtesy to insure prompt reporting. The interpreting radiologist is fully responsible for the content of the report.
== END 2022-12-13 07:08 | disposition home or self-care (01) ==
LOC: ER 04:28
DX: S16.1XXA Strain of muscle, fascia and tendon at neck level, initial encounter (principal); L30.9 Dermatitis, unspecified; W10.9XXA Fall (on) (from) unspecified stairs and steps, initial encounter
CPT/HCPCS: 72125; 81003; 81025; 99283